=== PATIENT | female | born 1985 | race Two or more races ===

== ENCOUNTER 2022-08-08 05:10 | Day surgery (SDC) | payer OTHER ==
[~2022-08-08] VITALS: Ht 170.2 cm; Wt 77.1 kg
== END 2022-08-08 16:30 | disposition home or self-care (01) ==
LOC: CIR.AMB 05:10
PROVIDERS: ATTEND Specialist
DX: N84.0 Polyp of corpus uteri (principal); N72 Inflammatory disease of cervix uteri; G43.909 Migraine, unspecified, not intractable, without status migrainosus